=== PATIENT | male | born 1995 | race Caucasian/White ===

== ENCOUNTER 2022-10-24 15:07 | Emergency (ER) | payer SELFPAY ==
[2022-10-24] MEDS ORDERED: Ketorolac Tromethamine 30 MG/ML VIAL ONE (15:42)
== END 2022-10-24 16:22 | disposition home or self-care (01) ==
LOC: ERS 15:07
DX: S43.401A Unspecified sprain of right shoulder joint, initial encounter (principal); F17.220 Nicotine dependence, chewing tobacco, uncomplicated
CPT/HCPCS: 96372; J1885